=== PATIENT | male | born 1965 | race Caucasian/White ===

== ENCOUNTER 2021-06-19 21:09 | Inpatient (IN) | payer OTHER ==
[~2021-06-19] VITALS: Ht 165.1 cm; Wt 102.5 kg
[2021-06-19 22:12] LABS: BASO % 0.1 % (0.0-2.0); EOS % 0.1 % (0.0-4.0); GRAN # 10.2 K/mm3 (1.4-6.5); GRAN % 86.5 % (42.2-75.2); HEMATOCRIT 36.7 % (42.0-52.0); HEMOGLOBIN 12.9 g/dl (13.5-18.0); LYMPH # 0.8 K/mm3 (1.2-3.4); LYMPH % 6.6 % (20.0-51.0); MEAN CELL VOLUME 90 fl (80.0-100.0); MEAN CORPUSCULAR HEMOGLOBIN 32 pg (27-31); MEAN CORPUSCULAR HGB CONC 35 g/dl (33.0-37.0); MEAN PLATELET VOLUME 8.3 fl (7.4-10.4); MONO # 0.7 K/mm3 (0.1-0.6); MONO % 5.7 % (1.7-9.3); PLATELET COUNT 174 K/mm3 (130-400)
[2021-06-19 22:26] LABS: BILIRUBIN,TOTAL 0.5 mg/dL (0.2-1.2); C-REACTIVE PROTEIN 0.47 mg/dL (0.00-0.50); CALCIUM 8.5 mg/dL (8.4-10.2); POTASSIUM 3.2 mmol/L (3.5-4.5); TOTAL PROTEIN 5.8 gm/dL (6.2-8.1)
[2021-06-20] VITALS (7 sets, daily range): BP systolic 110–145; BP diastolic 57–80; PULSE 88–115; TEMP 96.6–98.1
[2021-06-20] MEDS ORDERED: ATIVAN 0.50.5 MG/TAB PO (02:20)
[2021-06-20] MEDS ORDERED: PRINZIDE 25 MG-1 TAB PO (02:20)
[2021-06-20] MEDS ORDERED: NEURONTIN100 MG/CAP PO (02:21)
[2021-06-20] MEDS ORDERED: FENTANYL 25 MCG TD (02:21)
[2021-06-20] MEDS ORDERED: NORCO 325 MG-101 TAB PO (02:21)
[2021-06-20] MEDS ORDERED: ZYPREXA 5MG5 MG PO (02:22)
[2021-06-20] MEDS ORDERED: DOLOPHINE HCL5 MG PO (02:23)
[2021-06-20] MEDS ORDERED: ROXANOL 20MG20 MG/ML PO (02:23)
[2021-06-20] MEDS ORDERED: DECADRON 4MG TAB4 MG PO (02:37)
[2021-06-20] MEDS ORDERED: ATIVAN 1MG T1 MG/TAB PO (02:41)
[2021-06-20] MEDS ORDERED: FENTANYL 100MCG TD (02:43)
[2021-06-20] MEDS ORDERED: PRIL40 PO (02:47)
[2021-06-20] MEDS ORDERED: PROAIR HFA0.09 MG/AC IH (02:49)
--- NOTE | 2021-06-20 04:28 | NUR ---
Vancomycin Initial Dosing Pharmacy Note Ordering provider: Luz Ochoa DO Indication/duration: LE cellulitis x 7 days Relevant comorbidities: HTN, Stage 4 lung CA LABS: WBC = 11.8, SCr = 1.0 Recommendation: Will draw troughs and follow levels. Loading dose: 2 grams Maintenance dose: 1 gram every 12 hours Trough goal: 10-15 ug/mL
[2021-06-20 06:54] LABS: BASO % 0.2 % (0.0-2.0); EOS % 0.3 % (0.0-4.0); GRAN # 9.7 K/mm3 (1.4-6.5); HEMOGLOBIN 12.7 g/dl (13.5-18.0); LYMPH # 1.3 K/mm3 (1.2-3.4); LYMPH % 10.7 % (20.0-51.0); MEAN CELL VOLUME 91 fl (80.0-100.0); MEAN CORPUSCULAR HEMOGLOBIN 32 pg (27-31); MEAN CORPUSCULAR HGB CONC 35 g/dl (33.0-37.0); MONO # 0.7 K/mm3 (0.1-0.6); MONO % 5.8 % (1.7-9.3); PLATELET COUNT 164 K/mm3 (130-400); RED BLOOD COUNT 4.01 M/mm3 (4.20-5.60); REDCELL DISTRIBUTION WIDTH-CV 14.2 % (11.5-14.5)
[2021-06-20 06:55] LABS: HEMATOCRIT 36.4 % (42.0-52.0)
[2021-06-20 07:13] LABS: CALCIUM 7.8 mg/dL (8.4-10.2); CREATININE, serum 0.86 mg/dL (0.72-1.25)
--- NOTE | 2021-06-20 09:20 | NUR ---
Patient has been up ambulating halls & in room indeopendently. He is restless due to his back pain rating 9/10. Shooting chronic pain. Morning medications as ordered. He is wanting to make sure his fentynal patches are renewed, I did call and orders obtained. Patient has been trying to use heat pack. He reports he is unable to keep his foot elevated because it causes too much back pain. He reports his left foot has had weeping noted. He has pain in his leg, but his back pain is more significant. Iv to Int. He tolerated breakfast. Will monitor
--- NOTE | 2021-06-20 09:32 | NUR ---
Patient up ambulating halls with therapy. patches per orders
--- NOTE | 2021-06-20 10:50 | NUR ---
Patient resting with his left leg elevated. Pain much imporved he is able to rest. Much less restless.
--- NOTE | 2021-06-20 12:25 | NUR ---
SW tried to complete intake, but palliative care was having meeting with him. Will try back later.
[2021-06-20 12:54] LABS: PARTIAL THROMBOPLASTIN TIME 25.3 SECONDS (26.0-37.0)
--- NOTE | 2021-06-20 13:44 | NUR ---
Patient pain has returned /. Continues to be low back pain that is significant. He is again restless in room, trying to use heat/kpad. His significant other at bedside. I again discussed and reviewed medication list with patient and significant other. Called who has rounded and seen patient already. Patient decodron reordered and home inhauler as well. Tracy given & neurotin as well. Prn Ativan patient has ordered also given. Patient seems slightly aggitated/frustrated. Ortho consult called to Ivan Anderson (made him aware if was for compartment syndrome). Oncology consult to be called tmrw when back oncall. Heparin drip start & verified with Susanna Avalos, discussed with patient and made his aware it was started in case he has a blood clot in leg until it can be ruled out. He need a doppar completed, unable to complete today. Will continue to closely monitor.
--- NOTE | 2021-06-20 16:26 | NUR ---
Ivan with ortho has rounded, he suggested wrapping patient leg & foot loosly due to active draiange to contain the draiange. Kerlex & adriana wrap use & new socks applied, sock was soiled. Patient sitting up in chair, tries to keep his foot elevated when his back pain will allow him, but he can not tolerate very long. He denies the need for pain medication at this time.
--- NOTE | 2021-06-20 17:21 | NUR ---
Patient reporting pain 10/24. He requets [place] to continue to stay on top of pain and manage, but overall reports feeling much better. New Iv started to Left wrist for Iv antibioitcs. After Vanc started, orders for heparin drip to stop. I did call to confirm orders to Dc drip. Heparin drip Dc and Iv to Rfa Int. Patient overall in much better spirits. He reports his leg feels better wrapped. Dinner ordered. Will gurdeep.
--- NOTE | 2021-06-20 22:28 | NUR ---
Received report from day shift. Patient alert and oriented. VSS. Patient accidentally pulled IV from left hand. PCT applied pressure until nurse arrived. Patient denies pain. Assessment performed. Wrapped left lower extremity and instructed patient to elevate limb and try to rest. Patient continues to pace in room. Provided pain medication. Will continue to monitor.
--- NOTE | 2021-06-21 00:19 | NUR ---
Patient reported pain 8/10, requested [place]. Will continue to assess pain.
[2021-06-21 03:11] VITALS: BP 141/70; PULSE 93; TEMP 97.9
[2021-06-21 06:28] LABS: HEMOGLOBIN 11.7 g/dl (13.5-18.0); MEAN CELL VOLUME 93 fl (80.0-100.0); MEAN CORPUSCULAR HEMOGLOBIN 32 pg (27-31); MEAN CORPUSCULAR HGB CONC 34 g/dl (33.0-37.0); MEAN PLATELET VOLUME 8.6 fl (7.4-10.4); PLATELET COUNT 161 K/mm3 (130-400); RED BLOOD COUNT 3.69 M/mm3 (4.20-5.60); REDCELL DISTRIBUTION WIDTH-CV 14.5 % (11.5-14.5)
[2021-06-21 06:34] LABS: HEMATOCRIT 34.4 % (42.0-52.0)
[2021-06-21 06:42] LABS: ALBUMIN 2.9 gm/dL (3.5-5.0); CALCIUM 8.3 mg/dL (8.4-10.2); CREATININE, serum 0.75 mg/dL (0.72-1.25); MAGNESIUM 1.8 mg/dL (1.6-2.6); PHOSPHOROUS 2.1 mg/dL (2.3-4.7); POTASSIUM 3.7 mmol/L (3.5-4.5)
[2021-06-21 07:07] LABS: BAND 4 % (0-10); LYMPHOCYTE 9 % (20.0-51.0); NEUTROPHILS 86 % (42.0-75.2); PLATELET ESTIMATE NORMAL (NORMAL)
[2021-06-21 08:00] VITALS: BP 145/75; PULSE 90; TEMP 97.6
--- NOTE | 2021-06-21 08:00 | NUR ---
PATIENT IS A&O. VSS. RATES CHRONIC & LLE PAIN AT 08/24. PATIENT REQUESTING SOMETHING FOR PAIN. GAVE PRN ROXINOL & PRN ATIVAN PER REQUEST. PATIENT RECENTLY DISCHARGED FROM HOSPICE TO GET TREATMENT FOR THE CELLULITIS. HX OF STAGE 4 LUNG CA. PATIENT IS SITTING AT BEDSIDE WITH BREAKFAST TRAY. AM MEDS GIVEN. IV ABX INFUSING INTO RIGHT FORARM. CONSULTED PER ORDERS. HEAD TO TOE ASSESSMENT COMPLETE. NO OTHER NEEDS AT THIS TIME. INDEPENDENT IN ROOM. CALL LIGHT IN REACH.
--- NOTE | 2021-06-21 10:20 | NUR ---
Met with patient at bedside. He confirmed that he has lung cancer and has exhausted his treatment options for that, last one being in May 2020. He was receiving hospice services through [facility] but withdrew to be admitted and see why he has this leg swelling and pain. [place] feels that if there is no treatment available for his leg, he will return to hospice with [facility]. He reports that he has a good quality of life right now and would like to get as much time with his as possible, especially since she lost her first to cancer as well. Discussed case and situation with hospitalist team and SW. --Patient currently living in [place] with his as of November. Previously living in [facility]. 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
--- NOTE | 2021-06-21 11:08 | NUR ---
Group Exercise Instructor met with patient to discuss discharge planning. Patient lives in [place] with his , Shivani (ph#[phone]) and sees Dr. Hutchins for primary care. Patient obtains medications from [facility] in [place] and reports some difficulty affording medications despite using coupon resources like [facility]. Patient is interested in applying for Medicaid. Patient states he has applied before, however at one point did not qualify. MEL consulted [employer] Counselor. Patient has a rollator, cane, and shower chair at home and reported independence with ADLS. Patient observed walking the halls independently. Patient states his is his DPOA-HC. Patient was previously on home hospice with [facility], however discharged from hospice as he wanted to admit to the hospital and seek treatment for his leg if possible. Patient plans to return home with his at time of discharge. MEL contacted patient's , Shivani and left a message. MEL then contacted Ahsan with [facility] to provide update. Ahsan advised they were providing services to patient pro debi and helped patient get his pain under control. Ahsan advised patient has one more year of disability before he can qualify for Medicare and that patient has too many assets for Medicaid. Ahsan advised they will follow case and provide any services they can. Discharge Plan: Home with , possible hospice services
--- NOTE | 2021-06-21 12:00 | NUR ---
NETWORK DOWN BUT VASCULAR CONFIRMED VASCULAR US WAS NEGATIVE. ORTHO ROUNDING.
[2021-06-21 12:16] VITALS: BP 132/76; PULSE 103; TEMP 97.7
--- NOTE | 2021-06-21 14:44 | NUR ---
Church History Professor made contact with patient's and explained SW role in discharge planning. Shivani advised she will be here tomorrow.
[2021-06-21 16:30] VITALS: BP 124/77; PULSE 108; TEMP 99.1
[2021-06-21 19:15] VITALS: BP 138/72; PULSE 103; TEMP 97.9
--- NOTE | 2021-06-21 23:01 | NUR ---
Report received from LUIS FERNANDO Self. Patient is A&Ox4 and pleasant. Patient is seen ambulating the halls with a walker, gait is steady and patient does not display pain during ambulation. Full body assessment completed and vital signs are WNL. Patient lower left extremity is edematous, he complains of it hurting. Patient is here due to cellulitis that is affecting said extermity. This nurse suggested elevating the affected extremity which the patient did. Oral medication adminstration was completed without difficulty. Patient has no complaints at this time. Call light within reach.
[2021-06-22 00:12] VITALS: BP 151/77; PULSE 102; TEMP 97.8
[2021-06-22 03:55] VITALS: BP 139/80; PULSE 101; TEMP 98.3
[2021-06-22 06:33] LABS: HEMATOCRIT 37.2 % (42.0-52.0); HEMOGLOBIN 12.5 g/dl (13.5-18.0); MEAN CELL VOLUME 94 fl (80.0-100.0); MEAN CORPUSCULAR HEMOGLOBIN 32 pg (27-31); MEAN CORPUSCULAR HGB CONC 34 g/dl (33.0-37.0); MEAN PLATELET VOLUME 8.7 fl (7.4-10.4); PLATELET COUNT 193 K/mm3 (130-400); RED BLOOD COUNT 3.95 M/mm3 (4.20-5.60); REDCELL DISTRIBUTION WIDTH-CV 14.3 % (11.5-14.5)
[2021-06-22 06:48] LABS: ALBUMIN 3.1 gm/dL (3.5-5.0); CALCIUM 8.7 mg/dL (8.4-10.2); CREATININE, serum 0.8 mg/dL (0.72-1.25); MAGNESIUM 1.8 mg/dL (1.6-2.6); PHOSPHOROUS 1.9 mg/dL (2.3-4.7); POTASSIUM 4.2 mmol/L (3.5-4.5)
[2021-06-22 07:23] LABS: BAND 3 % (0-10); LYMPHOCYTE 16 % (20.0-51.0); NEUTROPHILS 77 % (42.0-75.2); PLATELET ESTIMATE NORMAL (NORMAL)
[2021-06-22 08:00] VITALS: BP 129/71; PULSE 98; TEMP 98
--- NOTE | 2021-06-22 08:00 | NUR ---
PATIENT IS A&O. VSS. C/O PAIN AND WEAPING IN LLE. GAVE PRN ROXINOL & PRN ATIVAN PER PATIENT REQUEST. APPLIED TELFA X3 TO WEAPING AREAS ON LLE AND COVERED WITH LARGE ACEWRAP DRESSING. NOTED +3 LLE EDEMA, +2 RLE EDEMA. POSITIVE PEDAL PULSES. INDEPENDENT IN ROOM. RIGHT FORARM IV TO INT. AM MEDS GIVEN. HEAD TO TOE ASSESSMENT COMPLETE. PATIENT PLANNING TO DISCHARGE HOME WITH HOSPICE LATER TODAY. NOTED FENTANYL PATCHES X2 INPLACE PER ORDERS. PT/OT CONSULTED.
[2021-06-22] MEDS ORDERED: CLEOCIN HCL300 MG PO ×3 (08:53→12:58)
--- NOTE | 2021-06-22 10:49 | NUR ---
PATIENT'S IS HERE. PATIENT IS DRESSED & PACKED FOR DISCHARGE. DC'D RIGHT FORARM IV AND COVERED SITE WITH GAUZE & COBAN. WORKING ON DISCHARGE INSTRUCTIONS & F/U APTS.
--- NOTE | 2021-06-22 11:05 | NUR ---
DISCHARGE INSTRUCTION GIVEN AND F/U APTS DISCUSSED. RN ANSWERED QUESTIONS/CONCERNS. PATIENT DISCHARGED TO [facility]HIC[facility] WITH .
--- NOTE | 2021-06-22 12:45 | NUR ---
Patient to discharge home today on hospice. MEL contacted Ahsan at [facility] and faxed referral/discharge orders. Ahsan advised an RN will be out to visit patient tomorrow at home. Discharge Plan: Home with [facility] today
== END 2021-06-22 11:05 | disposition hospice, home (50) | DRG 603 ==
LOC: COL.ER 21:09 → SURG 06-20 01:42
PROVIDERS: Emergency Medicine; Internal Medicine; Student in an Organized Health Care Education/Training Program; ADMIT Internal Medicine
DX: L03.116 Cellulitis of left lower limb (principal); C77.5 Secondary and unspecified malignant neoplasm of intrapelvic lymph nodes; C79.89 Secondary malignant neoplasm of other specified sites; C34.11 Malignant neoplasm of upper lobe, right bronchus or lung; I10 Essential (primary) hypertension; F32.A Depression, unspecified; F41.9 Anxiety disorder, unspecified; G89.29 Other chronic pain; E87.6 Hypokalemia; R73.9 Hyperglycemia, unspecified; Z87.891 Personal history of nicotine dependence
CPT/HCPCS: 99223-AI; 99232-AI; 99239; J0696; J1644; J1650; J2270; J3370; J7030; J7040; J7050; J8540; Q9967